=== PATIENT | female | born 1935 | race Caucasian/White ===

== ENCOUNTER → 2017-02-27 | Outpatient (CLI) | payer MEDICARE | LOC: MC.RAD 13:37 | DX: Z12.31 Encounter for screening mammogram for malignant neoplasm of breast (principal) ==

== ENCOUNTER 2017-07-12 07:53 | Day surgery (SDC) | payer MEDICARE ==
[~2017-07-12] VITALS: Ht 157.5 cm; Wt 70.5 kg
[2017-07-12] MEDS ORDERED: ASPIRIN E.C. 8181 MG PO (08:14)
[2017-07-12] MEDS ORDERED: TENORETIC 50 501 TAB PO (08:15)
[2017-07-12] MEDS ORDERED: CALCIUM 600MG+D1 TAB PO (08:16)
[2017-07-12] MEDS ORDERED: NATURE'S BLE1000 MCG PO (08:16)
[2017-07-12 08:17] LABS: HEMATOCRIT 41.2 % (37.0-47.0); HEMOGLOBIN 14.1 g/dl (12.5-16.0); MEAN CELL VOLUME 89 fl (80.0-100.0); MEAN CORPUSCULAR HEMOGLOBIN 30 pg (27.0-31.0); MEAN CORPUSCULAR HGB CONC 34 g/dl (33.0-37.0); PLATELET COUNT 174 K/mm3 (130-400); RED BLOOD COUNT 4.64 M/mm3 (4.10-5.30)
[2017-07-12] MEDS ORDERED: PRAVACHOL 40MG40 MG PO (08:17)
[2017-07-12] MEDS ORDERED: CLARITIN 1010 MG/TAB PO (08:17)
[2017-07-12] MEDS ORDERED: COUMADIN 77.5 MG/TAB PO (08:18)
[2017-07-12] MEDS ORDERED: SMZ/TMPDS PO (08:19)
[2017-07-12 08:38] LABS: CALCIUM 9.6 mg/dL (8.4-10.2); CREATININE, serum 0.85 mg/dL (0.52-1.25); POTASSIUM 3.7 mmol/L (3.4-5.0)
[2017-07-12 08:46] VITALS: BP 139/78; PULSE 62; TEMP 98.1
[2017-07-12 09:29] LABS: INR 3.6 (0.8-3.0); PROTHROMBIN TIME 42.9 SECONDS (9.7-12.8)
[2017-07-12 10:12] VITALS: BP 123/67; PULSE 62; TEMP 98
[2017-07-12 10:27] VITALS: BP 123/67; PULSE 62; TEMP 98
[2017-07-12] MEDS ORDERED: PACERONE200 MG PO (10:42)
[2017-07-12] MEDS ORDERED: COUMADIN 22.5 MG/TAB PO (10:44)
[2017-07-12 10:45] VITALS: BP 119/67; PULSE 58; TEMP 98
[2017-07-12 11:00] VITALS: BP 120/68; PULSE 62; TEMP 98
== END 2017-07-12 11:11 | disposition home or self-care (01) ==
LOC: COL.CAR 07:53
PROVIDERS: Internal Medicine Cardiovascular Disease
DX: I48.91 Unspecified atrial fibrillation (principal); E78.5 Hyperlipidemia, unspecified; Z86.19 Personal history of other infectious and parasitic diseases; I34.0 Nonrheumatic mitral (valve) insufficiency; Z79.82 Long term (current) use of aspirin; Z88.1 Allergy status to other antibiotic agents; Z88.8 Allergy status to other drugs, medicaments and biological substances; H91.8X1 Other specified hearing loss, right ear; Z79.01 Long term (current) use of anticoagulants
CPT/HCPCS: G9654; J2250; J2704

== ENCOUNTER 2018-07-06 08:43 | Emergency (ER) | payer MEDICARE ==
[~2018-07-06] VITALS: Ht 157.5 cm; Wt 68.2 kg
[~2018-07-06 08:43] MED LIST: ASPIRIN E.C. 8181 MG PO; CALCIUM 600MG+D1 TAB PO; CLARITIN 1010 MG/TAB PO; COUMADIN 22.5 MG/TAB PO; COUMADIN 77.5 MG/TAB PO; NATURE'S BLE1000 MCG PO; PACERONE200 MG PO; PRAVACHOL 40MG40 MG PO; SMZ/TMPDS PO; TENORETIC 50 501 TAB PO
[2018-07-06 08:48] VITALS: TEMP 98.6
[2018-07-06] MEDS ORDERED: ELIQUIS 5MG PO (09:12)
[2018-07-06] MEDS ORDERED: TENORETIC 50 501 TAB PO (09:14)
[2018-07-06] MEDS ORDERED: VITAMIN D31000 I1 PO (09:15)
[2018-07-06] MEDS ORDERED: BIOTIN10000 MC1 PO (09:15)
[2018-07-06] MEDS ORDERED: PACERONE200 MG PO (09:16)
[2018-07-06] MEDS ORDERED: VALIUM 2MG T2 MG/TAB PO (09:17)
[2018-07-06 09:21] LABS: BASO % 1.1 % (0.0-2.0); EOS # 0.1 (0.0-0.7); EOS % 3.5 % (0-4.0); GRAN # 2.2 (1.4-6.5); GRAN % 57.6 % (42.2-75.2); HEMATOCRIT 43.1 % (37.0-47.0); HEMOGLOBIN 14.7 g/dl (12.5-16.0); LYMPH # 0.9 (1.2-3.4); LYMPH % 24.5 % (20.0-51.0); MEAN CELL VOLUME 88 fl (80.0-100.0); MEAN CORPUSCULAR HEMOGLOBIN 30 pg (27.0-31.0); MEAN CORPUSCULAR HGB CONC 34 g/dl (33.0-37.0); MEAN PLATELET VOLUME 10.4 fl (7.4-10.4); MONO # 0.5 (0.1-0.6); PLATELET COUNT 158 K/mm3 (130-400); RED BLOOD COUNT 4.92 M/mm3 (4.10-5.30); REDCELL DISTRIBUTION WIDTH-CV 13.2 % (11.5-14.5)
[2018-07-06 09:27] LABS: ALBUMIN 4.4 gm/dL (3.5-5.0); BILIRUBIN,TOTAL 1.1 mg/dL (0.0-1.0); CALCIUM 9.5 mg/dL (8.4-10.2); CREATININE, serum 0.67 mg/dL (0.52-1.25); POTASSIUM 3.7 mmol/L (3.4-5.0); TOTAL PROTEIN 7.4 gm/dL (6.4-8.2)
[2018-07-06] MEDS ORDERED: PRINIVIL10 MG PO (10:10)
[2018-07-06 10:18] VITALS: BP 156/73; PULSE 56
== END 2018-07-06 10:26 | disposition home or self-care (01) ==
LOC: COL.ER 08:43
PROVIDERS: Family Medicine
DX: I10 Essential (primary) hypertension (principal); Z79.01 Long term (current) use of anticoagulants; Z79.82 Long term (current) use of aspirin

== ENCOUNTER 2020-12-12 07:52 | Day surgery (SDC) | payer MEDICARE ==
[~2020-12-12] VITALS: Ht 157.5 cm; Wt 67.5 kg
[~2020-12-12 07:52] MED LIST changes: +BIOTIN10000 MC1 PO; +ELIQUIS 5MG PO; +PRINIVIL10 MG PO; +VALIUM 2MG T2 MG/TAB PO; +VITAMIN D31000 I1 PO
[2020-12-12 08:42] VITALS: BP 151/80; PULSE 55; TEMP 97.8
[2020-12-12] MEDS ORDERED: COZAAR 25MG25 MG/TAB PO (08:44)
[2020-12-12] MEDS ORDERED: VALIUM 2MG T2 MG/TAB PO (08:47)
[2020-12-12] MEDS ORDERED: ZANTAC-360 (FAM10 MG PO (08:48)
[2020-12-12] MEDS ORDERED: CLARITIN 1010 MG/TAB PO (08:48)
[2020-12-12] MEDS ORDERED: FLONASEALLERGY NS (08:49)
[2020-12-12 08:55] LABS: HEMATOCRIT 39.8 % (37.0-47.0); HEMOGLOBIN 13.8 g/dl (12.5-16.0); MEAN CELL VOLUME 86 fl (80.0-100.0); MEAN CORPUSCULAR HEMOGLOBIN 30 pg (27.0-31.0); MEAN CORPUSCULAR HGB CONC 35 g/dl (33.0-37.0); MEAN PLATELET VOLUME 10.2 fl (7.4-10.4); PLATELET COUNT 166 K/mm3 (130-400); RED BLOOD COUNT 4.64 M/mm3 (4.10-5.30); REDCELL DISTRIBUTION WIDTH-CV 13.2 % (11.5-14.5)
[2020-12-12 09:03] LABS: CALCIUM 9.3 mg/dL (8.4-10.2); CREATININE, serum 0.59 (0.52-1.25); MAGNESIUM 1.5 mg/dL (1.6-2.3); POTASSIUM 3.4 mmol/L (3.4-5.0); PROTHROMBIN TIME 22.3 SECONDS (9.7-12.8)
[2020-12-12 09:05] LABS: PARTIAL THROMBOPLASTIN TIME 37.9 SECONDS (26.0-37.0)
[2020-12-12] MEDS ORDERED: COZAAR 50MG50 MG/TAB PO (09:33)
[2020-12-12] MEDS ORDERED: HCTZ 25MG TAB25 MG PO (09:33)
[2020-12-12] MEDS ORDERED: PACERONE400 MG PO (09:34)
[2020-12-12 09:41] LABS: THYROID STIMULATING HORMONE 2.733 uIU/mL (0.350-4.940)
[2020-12-12 09:50] VITALS: BP 132/81; PULSE 58
[2020-12-12 10:00] VITALS: BP 132/84; PULSE 47
[2020-12-12 10:15] VITALS: BP 108/72; PULSE 57
[2020-12-12 10:30] VITALS: BP 116/48; PULSE 53
[2020-12-12 10:45] VITALS: BP 141/91; PULSE 59
--- NOTE | 2020-12-12 11:15 | NUR ---
DC instructions reviewed with pt. She expresses understanding. Pt ambulated with standby assistance into [place] 15 feet, then back to room. Gait steady. Pt states she feels slightly lightheaded, fall prevention precautions reviewed, she expresses understanding and states she feels safe going home. INT DC'd with catheter intact. Pt has tolerated crackers and water with no issue. She is assisted out to son's car by wheelchair with belongings.
== END 2020-12-12 11:15 | disposition home or self-care (01) ==
LOC: COL.CAR 07:52
PROVIDERS: Internal Medicine Cardiovascular Disease
DX: I48.0 Paroxysmal atrial fibrillation (principal); I10 Essential (primary) hypertension; I34.9 Nonrheumatic mitral valve disorder, unspecified; M16.10 Unilateral primary osteoarthritis, unspecified hip; E78.00 Pure hypercholesterolemia, unspecified; Z85.828 Personal history of other malignant neoplasm of skin; Z90.710 Acquired absence of both cervix and uterus; Z90.89 Acquired absence of other organs; Z79.82 Long term (current) use of aspirin; Z79.01 Long term (current) use of anticoagulants; Z79.899 Other long term (current) drug therapy; Z83.3 Family history of diabetes mellitus; Z80.9 Family history of malignant neoplasm, unspecified; Z82.3 Family history of stroke
CPT/HCPCS: J2704; J7030